=== PATIENT | male | born 1950 | race Caucasian/White ===

== ENCOUNTER 2018-01-29 15:41 | Observation (INO) | payer MEDICARE, OTHER ==
[2018-01-29 15:59] LABS: ADD MAN DIFF? NO; BASOPHILS % 0.3 % (0.0-2.0); EOSINOPHILS % 0.1 % (0.0-7.0); HEMATOCRIT 45.8 % (42.0-52.0); HEMOGLOBIN 14.7 g/dl (14.0-18.0); LYMPHOCYTES # 1.3 10^3/ul (0.8-2.9); LYMPHOCYTES % 14.1 % (15.0-51.0); MEAN CORPUSCULAR HEMOGLOBIN 29.3 pg (29.0-33.0); MEAN CORPUSCULAR HGB CONC 32.1 g/dl (32.0-37.0); MEAN CORPUSCULAR VOLUME 91.4 fl (82.0-101.0); MEAN PLATELET VOLUME 9.3 fl (7.4-10.4); MONOCYTE # 0.3 10^3/ul (0.3-0.9); MONOCYTES % 3.1 % (0.0-11.0); NEUTROPHIL # 7.4 10^3/ul (1.6-7.5); PLATELET COUNT 252 10^3/UL (140-415); RED BLOOD COUNT 5.01 10^6/ul (4.70-6.10); RED CELL DISTRIBUTION WIDTH 12.9 % (11.5-14.5)
[2018-01-29] MEDS: SOD CHLORIDE 0.9% 1,000 ML IV (15:59)
[2018-01-29 16:26] LABS: ALANINE AMINOTRANSFERASE 22 IU/L (13-69); ALBUMIN 4.4 g/dl (3.3-4.9); ALBUMIN/GLOBULIN RATIO 1.57; ALKALINE PHOSPHATASE 68 IU/L (42-121); ANION GAP 15 (8-16); ASPARTATE AMINO TRANSFERASE 14 IU/L (15-46); BILIRUBIN,INDIRECT 0.6 mg/dl (0-1.1); BILIRUBIN,TOTAL 0.6 mg/dl (0.2-1.3); BLOOD UREA NITROGEN 22 mg/dl (7-20); CALCIUM 9.2 mg/dl (8.4-10.2); CARBON DIOXIDE 28 mmol/L (21-31); CHLORIDE 106 mmol/L (97-110); CHOL/HDL RATIO 3.3 RATIO; CHOLESTEROL 141 mg/dl (100-200); CREATINE KINASE 25 IU/L (23-200); CREATININE 0.81 mg/dl (0.61-1.24); GLUCOSE 116 mg/dl (70-220); HDL CHOLESTEROL 42 mg/dl (30-78); LDL CHOLESTEROL,CALCULATED 80 mg/dl; POTASSIUM 4.2 mmol/L (3.5-5.1); SODIUM 145 mmol/L (135-144); TOTAL PROTEIN 7.2 g/dl (6.1-8.1); TRIGLYCERIDES 96 mg/dl (0-149)
[2018-01-29 16:30] LABS: HEMOGLOBIN A1C 5.3 % (0-5.9)
[2018-01-29 16:37] LABS: CK INDEX 0.9
[2018-01-29 16:38] LABS: INR 0.93; PROTIME 12.6 Sec (11.9-14.9)
[2018-01-29 16:39] LABS: PARTIAL THROMBOPLASTIN TIME 27.3 Sec (25.0-35.0)
[2018-01-29 16:40] LABS: CK-MB < 0.22 ng/ml (0.0-2.4); TROPONIN-I < 0.012 ng/ml (0.00-0.12)
[2018-01-29] MEDS: ASPIRIN 325 MG TAB PO (16:40)
[2018-01-29] MEDS ORDERED: ONDANSETRON 4 MG INJ IV ×2 (18:30→21:30)
[2018-01-29] MEDS ORDERED: ACETAMINOPHEN 325 MG TAB PO ×2 (18:30→21:30)
[2018-01-29 19:58] LABS: ADD UMIC YES; UR ASCORBIC ACID 40 mg/dL (NEGATIVE); UR BILIRUBIN (Dip) NEGATIVE (NEGATIVE); UR BLOOD (Dip) NEGATIVE (NEGATIVE); UR CLARITY CLEAR (CLEAR); UR COLOR YELLOW (YELLOW); UR GLUCOSE (Dip) NEGATIVE (NEGATIVE); UR KETONES (Dip) TRACE mg/dL (NEGATIVE); UR LEUKOCYTE ESTERASE (Dip) NEGATIVE Leu/ul (NEGATIVE); UR MUCUS FEW /HPF (NONE SEEN); UR NITRITE (Dip) NEGATIVE (NEGATIVE); UR RBC 0 /HPF (0-5); UR SPECIFIC GRAVITY (Dip) 1.027 (1.003-1.030); UR TOTAL PROTEIN (Dip) 1+ mg/dl (NEGATIVE); UR UROBILINOGEN (Dip) NEGATIVE (NEGATIVE); UR WBC 3 /HPF (0-5)
[2018-01-29 20:17] LABS: AMPHETAMINE/METHAMPHETAMINE Negative (NEGATIVE)
[2018-01-29 20:33] LABS: BARBITURATES Negative (NEGATIVE); BENZODIAZEPINES Negative (NEGATIVE); CANNABINOIDS Negative (NEGATIVE); COCAINE Negative (NEGATIVE); OPIATES Negative (NEGATIVE)
[2018-01-29] MEDS ORDERED: morphine 2 MG INJ IV (21:30)
[2018-01-29] MEDS ORDERED: NACL 0.9% 3 ML SYG IV (21:30)
[2018-01-29] MEDS ORDERED: ALBUTEROL/IPRATROPIUM (NEB) 3 ML AMP HHN (21:30)
[2018-01-30 06:23] LABS: ADD MAN DIFF? NO
[2018-01-30 06:31] LABS: WHITE BLOOD COUNT 11.6 10^3/ul (4.8-10.8)
[2018-01-30 06:31] LABS: BASOPHILS % 0.2 % (0.0-2.0); HEMATOCRIT 42.4 % (42.0-52.0); HEMOGLOBIN 13.7 g/dl (14.0-18.0); LYMPHOCYTES % 17.7 % (15.0-51.0); MEAN CORPUSCULAR HEMOGLOBIN 29.3 pg (29.0-33.0); MEAN CORPUSCULAR HGB CONC 32.3 g/dl (32.0-37.0); MEAN CORPUSCULAR VOLUME 90.6 fl (82.0-101.0); MEAN PLATELET VOLUME 9.6 fl (7.4-10.4); MONOCYTE # 0.7 10^3/ul (0.3-0.9); NEUTROPHIL # 8.8 10^3/ul (1.6-7.5); NEUTROPHILS % 75.7 % (39.0-77.0); PLATELET COUNT 237 10^3/UL (140-415); RED BLOOD COUNT 4.68 10^6/ul (4.70-6.10); RED CELL DISTRIBUTION WIDTH 13.2 % (11.5-14.5)
[2018-01-30 06:48] LABS: ALANINE AMINOTRANSFERASE 18 IU/L (13-69); ALBUMIN 3.6 g/dl (3.3-4.9); ALBUMIN/GLOBULIN RATIO 1.33; ALKALINE PHOSPHATASE 61 IU/L (42-121); ANION GAP 10 (8-16); ASPARTATE AMINO TRANSFERASE 15 IU/L (15-46); BILIRUBIN,INDIRECT 0.8 mg/dl (0-1.1); BILIRUBIN,TOTAL 0.8 mg/dl (0.2-1.3); BLOOD UREA NITROGEN 18 mg/dl (7-20); CALCIUM 9.3 mg/dl (8.4-10.2); CARBON DIOXIDE 28 mmol/L (21-31); CHLORIDE 111 mmol/L (97-110); CHOL/HDL RATIO 3.5 RATIO; CHOLESTEROL 135 mg/dl (100-200); CREATININE 0.72 mg/dl (0.61-1.24); GLUCOSE 112 mg/dl (70-220); HDL CHOLESTEROL 38 mg/dl (30-78); LDL CHOLESTEROL,CALCULATED 86 mg/dl; MAGNESIUM 2.3 mg/dl (1.7-2.5); SODIUM 145 mmol/L (135-144); TOTAL PROTEIN 6.3 g/dl (6.1-8.1); TRIGLYCERIDES 55 mg/dl (0-149)
[2018-01-30 07:16] LABS: THYROID STIMULATING HORMONE 0.485 MIU/L (0.465-4.680)
[2018-01-30 07:41] LABS: HEMOGLOBIN A1C 5.4 % (0-5.9)
[2018-01-30] MEDS: ASPIRIN 81 MG TAB PO (09:11)
[2018-01-30] MEDS: ENOXAPARIN 40 MG/0.4 ML SYG SC (09:11)
[2018-01-30] MEDS: BRINZOLAMIDE 1% 10ML OPH BOTH EYES (21:42)
[2018-01-30] MEDS: BRIMONIDINE 0.2%-TIMOLOL 0.5% 5ML OPH BOTH EYES (21:42)
[2018-01-30] MEDS: RISPERIDONE 0.25 MG TAB PO (21:43)
[2018-01-30] MEDS: ATORVASTATIN 20 MG TAB PO (21:43)
[2018-01-31] MEDS: LOSARTAN 25 MG TAB PO (09:10)
[2018-01-31] MEDS: BRIMONIDINE 0.2%-TIMOLOL 0.5% 5ML OPH BOTH EYES ×2 (09:10→21:15)
[2018-01-31] MEDS: ASPIRIN 81 MG TAB PO (09:10)
[2018-01-31] MEDS: BUPROPION (XL) 150 MG TAB PO (09:10)
[2018-01-31] MEDS: BRINZOLAMIDE 1% 10ML OPH BOTH EYES ×2 (09:10→21:15)
[2018-01-31] MEDS: ENOXAPARIN 40 MG/0.4 ML SYG SC (09:12)
[2018-01-31] MEDS ORDERED: morphine LIQ (10 MG/5 ML) CUP PO (16:00)
[2018-01-31] MEDS: RISPERIDONE 0.25 MG TAB PO (21:15)
[2018-01-31] MEDS: ATORVASTATIN 20 MG TAB PO (21:15)
[2018-02-01] MEDS: BRIMONIDINE 0.2%-TIMOLOL 0.5% 5ML OPH BOTH EYES (08:38)
[2018-02-01] MEDS: METOPROLOL (XL) 25 MG TAB PO (08:39)
[2018-02-01] MEDS: CLOPIDOGREL 75 MG TAB PO (08:39)
[2018-02-01] MEDS: ASPIRIN 81 MG TAB PO (08:39)
[2018-02-01] MEDS: LOSARTAN 25 MG TAB PO (08:39)
[2018-02-01] MEDS: BUPROPION (XL) 150 MG TAB PO (08:40)
[2018-02-01] MEDS: ENOXAPARIN 40 MG/0.4 ML SYG SC (08:41)
[2018-02-01] MEDS: BRINZOLAMIDE 1% 10ML OPH BOTH EYES (08:42)
== END 2018-02-01 12:42 | disposition home health service (06) ==
LOC: MS4 18:04 → E/R 15:41
DX: R55 Syncope and collapse (principal); Q99.2 Fragile X chromosome; F71 Moderate intellectual disabilities; E78.5 Hyperlipidemia, unspecified; H40.9 Unspecified glaucoma; I11.0 Hypertensive heart disease with heart failure; I50.22 Chronic systolic (congestive) heart failure; Z79.82 Long term (current) use of aspirin
CPT/HCPCS: 36415; 70450; 70551; 71045; 80053; 80061; 80307; 81001; 82550; 82553; 82962; 83036; 83735; 84443; 84484; 85025; 85610; 85730; 87081; 92526; 92610; 93005; 93306; 93880; 95819; 96372; 97116; 97161; 97530; 99285-25; G0378